=== PATIENT | female | born 1995 | race Two or more races ===

== ENCOUNTER 2021-03-19 05:56 | Emergency (ER) | payer BC ==
[~2021-03-19] VITALS: Ht 160 cm; Wt 72.6 kg
--- NOTE | 2021-03-19 06:09 | NUR ---
BIB SELF C/O ALLERGIC REACTION TO [place] AND [place]. PT PRESENTS WITH SWOLLEN LIPS AND ITCHY TONGUE. DENIES SOB, BREATHING EVEN AND UNLABORED NO WHEEZES. PT STATES SHE HAS SIMILIAR REACTIONS IN THE PAST. PLACED ON PULSE OX VSS MD AT BEDSIDE FOR EVAL.
[2021-03-19] MEDS ORDERED: EPINEPHRINE (1:1000) 1 MG/ML AMPUL ONE (06:22)
[2021-03-19] MEDS ORDERED: ONDANSETRON HCL/PF 4 MG/2 ML VIAL ONE (06:23)
[2021-03-19] MEDS ORDERED: methylPREDNISolone SOD SUCC 125 MG/2ML VIAL ONE (06:23)
[2021-03-19] MEDS ORDERED: ONDANSETRON HCL/PF 4 MG/2 ML VIAL IVP ONE (06:30)
[2021-03-19] MEDS ORDERED: EPINEPHRINE (1:1000) MDV 30 MG/30ML VIAL SUBCUT ONE (06:30)
[2021-03-19] MEDS ORDERED: methylPREDNISolone SOD SUCC 125 MG/2ML VIAL IV ONE (06:30)
[2021-03-19 06:46] LABS: BASOPHILS % (AUTO) 0.3 % (0.0-2.0); EOSINOPHILS % (AUTO) 2.8 % (0.0-6.0); HEMATOCRIT 41 % (33-45); HEMOGLOBIN 13.9 g/dL (11.5-14.8); LYMPHOCYTES # (AUTO) 1.4 K/uL (0.8-4.8); LYMPHOCYTES % (AUTO) 21.9 % (20.0-44.0); MEAN CORPUSCULAR HGB CONC 34 g/dl (31.0-36.0); MEAN CORPUSCULAR VOLUME 95 fL (82-100); MONOCYTES # (AUTO) 0.5 K/uL (0.1-1.30); MONOCYTES % (AUTO) 8.1 % (2.0-12.0); NEUTROPHILS # (AUTO) 4.1 K/uL (1.8-8.9); NEUTROPHILS % (AUTO) 66.9 % (43.0-81.0); PLATELET COUNT (AUTO) 344 K/uL (150-450); RED BLOOD CELL COUNT(AUTO) 4.29 MIL/uL (4.0-5.2); WHITE BLOOD COUNT (AUTO) 6.2 K/uL (4.3-11.0)
[2021-03-19 06:58] LABS: CALCIUM, SERUM 9.2 mg/dL (8.5-10.1); CREATININE 0.8 mg/dL (0.6-1.3); POTASSIUM 4.1 mmol/L (3.5-5.1)
[2021-03-19] MEDS ORDERED: EPIN0.3P3 IJ (07:14)
--- NOTE | 2021-03-19 07:20 | NUR ---
Patient discharged to home in stable condition. Written and verbal after care instructions given. Patient verbalizes understanding of instruction. IV line discontinued VSS at discharge.
[2021-03-19 07:21] VITALS: BP 130/67
== END 2021-03-19 07:21 | disposition home or self-care (01) ==
LOC: ER 06:01
DX: J30.1 Allergic rhinitis due to pollen (principal); R22.0 Localized swelling, mass and lump, head; Z60.2 Problems related to living alone; Z91.048 Other nonmedicinal substance allergy status; Z79.899 Other long term (current) drug therapy
CPT/HCPCS: 36415; 80048; 84703; 85025; 96372; 96374; 96375; 99284; J0171 ×2; J2405; J2930